=== PATIENT | male | born 1960 | race Caucasian/White ===

== ENCOUNTER → 2017-08-10 | Outpatient (CLI) | payer MEDICARE, MEDICAID | LOC: COL.RAD 13:24 | DX: M25.512 Pain in left shoulder (principal) ==

== ENCOUNTER 2017-12-15 09:32 | Day surgery (SDC) | payer MEDICARE, MEDICAID ==
[~2017-12-15] VITALS: Ht 191.8 cm; Wt 124.2 kg
[2017-12-15] VITALS (582 sets, daily range): BP systolic 96–147; BP diastolic 44–80; PULSE 48–66; TEMP 97.1–98.6; O2SAT 85–98
[2017-12-15 10:24] LABS: HEMATOCRIT 42.5 % (42.0-52.0); HEMOGLOBIN 14.4 g/dl (13.5-18.0); MEAN CELL VOLUME 85 fl (80.0-100.0); MEAN CORPUSCULAR HEMOGLOBIN 29 pg (27.0-31.0); MEAN CORPUSCULAR HGB CONC 34 g/dl (33.0-37.0); MEAN PLATELET VOLUME 9.1 fl (7.4-10.4); PLATELET COUNT 181 K/mm3 (130-400); RED BLOOD COUNT 4.98 M/mm3 (4.20-5.60); REDCELL DISTRIBUTION WIDTH-CV 12.8 % (11.5-14.5)
[2017-12-15 10:27] LABS: INR 1.1 (0.8-3.0); PROTHROMBIN TIME 12.8 SECONDS (9.7-12.8)
[2017-12-15 10:31] LABS: CALCIUM 9.6 mg/dL (8.4-10.2); CREATININE, serum 0.87 mg/dL (0.66-1.25); POTASSIUM 4.1 mmol/L (3.4-5.0)
[2017-12-15] MEDS ORDERED: OXY IR5 MG PO ×2 (10:43→10:44)
[2017-12-15] MEDS ORDERED: LEVEMIR100 U/ML SQ (10:44)
[2017-12-15] MEDS ORDERED: NOVOLOG 100U100 U/M1 SQ (10:45)
[2017-12-15] MEDS ORDERED: LYRICA 50MG CAP50 MG PO ×2 (10:46→10:47)
[2017-12-15] MEDS ORDERED: ZONEGRAN50 MG PO (10:46)
[2017-12-15] MEDS ORDERED: KEPPRA 500MG500 MG PO ×2 (10:48)
[2017-12-15] MEDS ORDERED: PROTONIX 40MG T40 MG PO (10:49)
[2017-12-15] MEDS ORDERED: TOPAMAX50 MG PO (10:49)
[2017-12-15] MEDS ORDERED: SYNTHROID 0.0.025 MG PO (10:50)
[2017-12-15] MEDS ORDERED: LAMICTAL200 MG PO (10:50)
[2017-12-15] MEDS ORDERED: CELEXA40 MG PO (10:51)
[2017-12-15] MEDS ORDERED: TOPROL XL 25MG25 MG PO (10:51)
[2017-12-15] MEDS ORDERED: CRESTOR20 MG PO (10:52)
[2017-12-15] MEDS ORDERED: MASON NATURAL1200 MG PO (10:52)
[2017-12-16] VITALS (438 sets, daily range): BP systolic 102–113; BP diastolic 63–68; PULSE 59–66; TEMP 98.2–98.4; O2SAT 71–98
[2017-12-16 05:53] LABS: BASO % 0.9 % (0.0-2.0); EOS # 0.1 (0.0-0.7); EOS % 2.2 % (0-4.0); GRAN # 2.5 (1.4-6.5); GRAN % 56.9 % (42.2-75.2); HEMATOCRIT 39.6 % (42.0-52.0); HEMOGLOBIN 13.6 g/dl (13.5-18.0); LYMPH # 1.4 (1.2-3.4); MEAN CELL VOLUME 86 fl (80.0-100.0); MEAN CORPUSCULAR HEMOGLOBIN 30 pg (27.0-31.0); MEAN CORPUSCULAR HGB CONC 34 g/dl (33.0-37.0); MEAN PLATELET VOLUME 8.7 fl (7.4-10.4); MONO # 0.4 (0.1-0.6); MONO % 8.8 % (1.7-9.3); PLATELET COUNT 159 K/mm3 (130-400); REDCELL DISTRIBUTION WIDTH-CV 12.8 % (11.5-14.5)
[2017-12-16 06:04] LABS: CALCIUM 9.2 mg/dL (8.4-10.2); CREATININE, serum 0.8 mg/dL (0.66-1.25); POTASSIUM 3.9 mmol/L (3.4-5.0)
[2017-12-16] MEDS ORDERED: BRILINTA90 MG PO (09:55)
[2017-12-16] MEDS ORDERED: IMDUR 30MG30 MG/TAB PO (09:55)
[2017-12-16] MEDS ORDERED: ASPIRIN E.C. 8181 MG PO (09:57)
[2017-12-16] MEDS ORDERED: NITROSTAT0.4 MG/TAB SL (09:57)
[2017-12-16] MEDS ORDERED: PLAVIX 75MG TAB75 MG PO (10:00)
== END 2017-12-16 16:35 | disposition home or self-care (01) ==
LOC: COL.CAR 09:32 → ICU 12:45 → COL.CAR 12-16 16:35
PROVIDERS: Internal Medicine Cardiovascular Disease; Nurse Practitioner
DX: I25.110 Atherosclerotic heart disease of native coronary artery with unstable angina pectoris (principal); R94.39 Abnormal result of other cardiovascular function study; E78.5 Hyperlipidemia, unspecified; I10 Essential (primary) hypertension; E11.9 Type 2 diabetes mellitus without complications; Z82.49 Family history of ischemic heart disease and other diseases of the circulatory system; Z79.4 Long term (current) use of insulin
CPT/HCPCS: OP; C1725; C1760; C1769; C1874; C1887; C1894; C9600; J0583; J1815; J2250; J3010; Q9967

== ENCOUNTER 2022-01-15 09:23 | Day surgery (SDC) | payer MEDICARE, MEDICAID ==
[2022-01-15] VITALS (101 sets, daily range): BP systolic 96–148; BP diastolic 62–79; PULSE 70–88; TEMP 75–97.7; O2SAT 88–97
[~2022-01-15] VITALS: Ht 193.1 cm; Wt 112.2 kg
[~2022-01-15 09:23] MED LIST: ASPIRIN E.C. 8181 MG PO; BRILINTA90 MG PO; CELEXA40 MG PO; CRESTOR20 MG PO; IMDUR 30MG30 MG/TAB PO; KEPPRA 500MG500 MG PO; LAMICTAL200 MG PO; LEVEMIR100 U/ML SQ; LYRICA 150MG C150 MG PO; LYRICA 50MG CAP50 MG PO; MASON NATURAL1200 MG PO; NITROSTAT0.4 MG/TAB SL; NOVOLOG 100U100 U/M1 SQ; OXY IR5 MG PO; PLAVIX 75MG TAB75 MG PO; PROTONIX 40MG T40 MG PO; SYNTHROID 0.0.025 MG PO; TOPAMAX50 MG PO; TOPROL XL 25MG25 MG PO; ZONEGRAN50 MG PO
--- NOTE | 2022-01-15 09:51 | NUR ---
SEE MERGE FOR ALL MEDICATION ADMINISTRATION TIMES/DOSAGES AND INTRA/POST PROCEDURE SEDATION ASSESSMENTS.
[2022-01-15 09:55] LABS: HEMOGLOBIN 11.9 g/dl (13.5-18.0); MEAN CELL VOLUME 77 fl (80.0-100.0); MEAN CORPUSCULAR HEMOGLOBIN 25 pg (27-31); MEAN CORPUSCULAR HGB CONC 33 g/dl (33.0-37.0); PLATELET COUNT 191 K/mm3 (130-400); RED BLOOD COUNT 4.68 M/mm3 (4.20-5.60); REDCELL DISTRIBUTION WIDTH-CV 16.1 % (11.5-14.5)
[2022-01-15 10:07] LABS: CALCIUM 8.9 mg/dL (8.4-10.2); CREATININE, serum 1.12 mg/dL (0.72-1.25); POTASSIUM 4.4 mmol/L (3.5-4.5)
[2022-01-15 10:09] LABS: PROTHROMBIN TIME 10.6 SECONDS (9.7-12.8)
[2022-01-15] MEDS ORDERED: REGLAN 5MG T5 MG/TAB PO (10:10)
[2022-01-15] MEDS ORDERED: MULTI VITAMINS1 TAB PO (10:11)
[2022-01-15] MEDS ORDERED: NOVOLOG FLEX100 U/ML SQ (10:14)
[2022-01-15] MEDS ORDERED: PRIL40 PO (10:15)
[2022-01-15] MEDS ORDERED: VITAMIN B-6100 MG PO (10:19)
[2022-01-15] MEDS ORDERED: ASPIRIN 81M81 MG/TA2 PO (10:20)
[2022-01-15] MEDS ORDERED: K-DUR 10 MEQ T10 MEQ PO (10:21)
[2022-01-15] MEDS ORDERED: PLAVIX 75MG TAB75 MG PO (10:21)
[2022-01-15] MEDS ORDERED: PROAMATINE 5MG T5 MG PO (10:22)
[2022-01-15] MEDS ORDERED: NITROSTAT0.4 MG/TAB SL (10:27)
[2022-01-15] MEDS ORDERED: IMDUR 30MG30 MG/TAB PO (12:32)
--- NOTE | 2022-01-15 16:35 | NUR ---
Discharge instructions given to pt.pt verbalizes understanding.INT removed,catheter tip intact.Dressing to right radial site observed clean, dry, intact, and soft to touch.Pt escorted out via wheelchair by this nurse.
== END 2022-01-15 16:45 ==
LOC: COL.CAR 09:23
PROVIDERS: Internal Medicine Cardiovascular Disease
DX: I25.110 Atherosclerotic heart disease of native coronary artery with unstable angina pectoris (principal); I44.0 Atrioventricular block, first degree; I10 Essential (primary) hypertension; E78.5 Hyperlipidemia, unspecified; Z79.82 Long term (current) use of aspirin; Z79.02 Long term (current) use of antithrombotics/antiplatelets; Z79.891 Long term (current) use of opiate analgesic; Z79.899 Other long term (current) drug therapy; Z87.891 Personal history of nicotine dependence; Z95.5 Presence of coronary angioplasty implant and graft
CPT/HCPCS: C1769; J1644; J2250; J3010; Q9967